=== PATIENT | male | born 1950 | race Hispanic/Latino ===

== ENCOUNTER → 2022-02-19 | Outpatient (CLI) | payer MEDICARE, OTHER ==
[~2022-02-19] MED LIST: IOPAMIDOL 370 MG/ML 100 ML INFUS..BTL INJ ONE
[2022-02-19 10:14] LABS: CREATININE, SERUM 1.11 mg/dL (0.72-1.25)
== END ==
LOC: CT 09:18
PROVIDERS: ATTEND Specialist
DX: R22.31 Localized swelling, mass and lump, right upper limb (principal); M79.89 Other specified soft tissue disorders
CPT/HCPCS: 36415; 73201; 82565; 84520; Q9967

== ENCOUNTER → 2022-06-17 | Day surgery (SDC) | payer MEDICARE, OTHER ==
[2022-06-15 10:16] LABS: BASOPHILS % 0.6 % (0.0-1.0); EOSINOPHILS # (AUTO) 0.1 (0.0-0.4); EOSINOPHILS % 2.1 % (0.0-6.0); HEMATOCRIT 42.6 % (38.2-49.6); HEMOGLOBIN 13.6 g/dL (14.0-18.0); LYMPHOCYTES # (AUTO) 1.8 (1.0-3.2); LYMPHOCYTES % 29.1 % (18.0-39.1); MEAN CORPUSCULAR HEMOGLOBIN 28.3 pg (28-32); MEAN CORPUSCULAR HGB CONC 31.9 g/dL (31-35); MEAN CORPUSCULAR VOLUME 88.8 fL (81-99); MONOCYTES # (AUTO) 0.4 (0.2-0.8); MONOCYTES % 6.6 % (4.4-11.3); NEUTROPHILS # (AUTO) 3.8 (2.1-6.9); NEUTROPHILS % 61.3 % (38.7-80.0); PLATELET COUNT 269 x10e3/uL (140-360); RED CELL DISTRIBUTION WIDTH 12.6 % (11.7-14.4)
[~2022-06-17] MED LIST changes: +AMLODIPINE VALSARTAN PO; +ATORVASTATIN CA20 MG PO; +ATROVENT HFA12.9 GM INH; +ELIQUIS5 MG PO; +FINASTERIDE5 MG PO; +FLOMAX0.4 MG PO; +FUROSEMIDE40 MG PO; -IOPAMIDOL 370 MG/ML 100 ML INFUS..BTL INJ ONE; +LIDOCAINE HCL 2% LOCAL INJ 5 ML SDV VIAL INJ ONE; +METFORMIN HCL500 MG PO; +METOPROLOL SUCC25 MG PO; +MINOXIDIL2.5 MG PO; +NAPROXEN250 MG PO; +OZEMPIC0.25 MG/0. SC; +PROPOFOL IV EMULSION 10 MG/ML 20 ML VIAL ONE
[2022-06-17 10:10] VITALS: BP 126/67
== END | disposition home or self-care (01) ==
LOC: OR 09:08
PROVIDERS: ATTEND Internal Medicine Gastroenterology
DX: Z12.11 Encounter for screening for malignant neoplasm of colon (principal); K57.30 Diverticulosis of large intestine without perforation or abscess without bleeding; K64.8 Other hemorrhoids; K21.9 Gastro-esophageal reflux disease without esophagitis; E11.9 Type 2 diabetes mellitus without complications; I10 Essential (primary) hypertension; E78.5 Hyperlipidemia, unspecified; N40.0 Benign prostatic hyperplasia without lower urinary tract symptoms; F17.200 Nicotine dependence, unspecified, uncomplicated; Z01.810 Encounter for preprocedural cardiovascular examination; Z01.812 Encounter for preprocedural laboratory examination; Z79.82 Long term (current) use of aspirin; Z79.02 Long term (current) use of antithrombotics/antiplatelets; Z79.84 Long term (current) use of oral hypoglycemic drugs; Z79.899 Other long term (current) drug therapy; Z68.41 Body mass index [BMI] 40.0-44.9, adult; Z95.810 Presence of automatic (implantable) cardiac defibrillator
CPT/HCPCS: 36415 ×2; 82948; 85025; 93005; G0121; J2001; J2704; 45378